=== PATIENT | female | born 1975 | race Caucasian/White ===

== ENCOUNTER 2016-11-13 10:30 | Emergency (ER) | payer MEDICARE ==
--- NOTE | 2016-11-25 08:25 | ER ---
ADMIT: 11/13/2016 RM/LOC: ER [facility] MR#: [id number] [id number] [place] [address] Emergency Room Report SEX: F AGE: 41 : 1975 DATE: 11/13/2016 ADDENDUM: This 41-year-old white female coming in with congestion. She has fluid behind both ears. This is more seasonal than anything. She is to take Mucinex only, no antihistamines. Gave her Decadron 20 IM. Follow up as needed. Todd Crump MD/ ray JOB #: [id number] CC: Todd Crump MD, Attending Physician Waqar Treviño MD, Family Physician
== END 2016-11-13 11:15 | disposition home or self-care (01) ==
LOC: ER 10:30
DX: H65.93 Unspecified nonsuppurative otitis media, bilateral (principal); J30.2 Other seasonal allergic rhinitis; Z86.73 Personal history of transient ischemic attack (TIA), and cerebral infarction without residual deficits; Z86.718 Personal history of other venous thrombosis and embolism; Z88.0 Allergy status to penicillin; Z79.899 Other long term (current) drug therapy